=== PATIENT | male | born 1970 | race Caucasian/White ===

== ENCOUNTER 2025-08-23 11:17 | Inpatient (IN) | payer SELFPAY ==
[2025-08-23 11:45] LABS: #Basophils 0.08 10x3/uL (0.0-0.2); #Eosinophils Less than 0.03 10x3/uL (0.0-0.7); #Monocytes 0.52 10x3/uL (0.11-0.59); #Neutrophils 19.70 10x3/uL (1.40-6.50); %Basophils 0.4 % (0.0-1.0); %Eosinophils 0.1 % (0.0-10.0); %Lymphocytes 6.4 % (21.0-51.0); %Monocytes 2.4 % (0.0-10.0); %Neutrophils 90.2 % (42.0-75.0); Hematocrit 40.8 % (42.0-52.0); Hemoglobin 13.7 g/dL (14.0-18.0); Mean Corpuscular Hemoglobin 28.8 pg (27.0-31.0); Mean Corpuscular Volume 85.7 fL (78.0-98.0); Platelet Count 406 10x3/uL (130-400); Red Blood Cell (RBC) Count 4.76 mill/uL (4.70-6.10); White Blood Cell (WBC) Count 21.81 10x3/uL (4.8-10.8)
[2025-08-23] MEDS ORDERED: CALCIUM GLUC 1 GM/NS 50 ML IV Bag ONE (12:09)
[2025-08-23] MEDS ORDERED: hydrALAZINE 20 MG/ML VIAL ONE (12:09)
[2025-08-23] MEDS ORDERED: Ondansetron PF 4 MG/2 ML Vial ONE (12:09)
[2025-08-23 12:18] LABS: ALT (SGPT) 9 U/L (Less than 45); AST (SGOT) 14 U/L (11-34); Albumin 4.5 g/dL (3.1-4.5); Alkaline Phosphatase 92 U/L (40-110); Anion Gap 26 mmol/L (10-20); BUN (Urea Nitrogen) 51 mg/dL (8.4-25.7); Bilirubin, Total 0.4 mg/dL (0.3-1.2); Calc. Creatinine Clearance 0 mL/min (70-130); Calcium 9.5 mg/dL (7.8-10.44); Carbon Dioxide 13 mmol/L (22-29); Chloride 100 mmol/L (98-107); Globulin 3.6 g/dL (2.4-3.5); Glucose 299 mg/dL (70-105); Magnesium 2.1 mg/dL (1.6-2.6); Potassium 6.5 mmol/L (3.5-5.1); Sodium 132 mmol/L (136-145)
[2025-08-23] MEDS ORDERED: Albuterol 2.5 MG (3 mL) NEB ONE (12:25)
[2025-08-23] MEDS ORDERED: Albuterol 2.5 MG (0.5 mL) NEB ONE (12:25)
[2025-08-23 12:48] LABS: Analyzer IN Cardio ER; Base Excess (BEa) -4.3 mEq/L (-2.0 to +3.0); Calcium, Ionized (arterial) 1.11 mmol/L (1.12-1.30); Hematocrit-ABG 44 % (42.0-52.0); Hemoglobin (Hb) 14.8 g/dL (14.0-18.0); O2 Tension (PaO2), arterial 129.3 mmHg (80.0-100.0); pH, Arterial 7.582 (7.35-7.45)
[2025-08-23] MEDS ORDERED: Dextrose 50% Abboject 50 ML SYRINGE ONE (12:56)
[2025-08-23] MEDS ORDERED: cloNIDine 0.1 MG TAB ONE (13:16)
[2025-08-23 14:02] LABS: HBSAB Concentration Less than 8.00 mIU/mL; Hep B Core Total Ab NONREACTIVE (NonReactive); Hep B Core Total Index 0.05 S/CO (0-0.79); Hep B Surf Ag NONREACTIVE S/CO (NonReactive); Hep C IgG Ab NONREACTIVE S/CO (NonReactive); Hep C Index 0.10 S/CO (0-0.79)
[2025-08-23] MEDS ORDERED: Melatonin 3 MG TAB PO PRN (14:03)
[2025-08-23] MEDS ORDERED: Dextrose 50% Abboject 50 ML SYRINGE SLOW IVP PRN (14:03)
[2025-08-23] MEDS ORDERED: Glucagon 1 MG/ML KIT IM PRN (14:03)
[2025-08-23] MEDS ORDERED: Senokot S 8.6-50 MG TAB PO PRN (14:03)
[2025-08-23 17:04] VITALS: BMI 26.4
[2025-08-23] MEDS: Heparin 5,000 UNITS/ML VIAL SC SCH (18:42)
[2025-08-23] MEDS: Activase 2 MG VIAL CATH SCH (19:58)
[2025-08-23] MEDS: cloNIDine 0.1 MG TAB PO SCH (20:26)
[2025-08-23] MEDS: Acetaminophen 325 MG TAB PO PRN (20:26)
[2025-08-24] MEDS: Ondansetron PF 4 MG/2 ML Vial IVP PRN (02:45)
[2025-08-24 04:51] LABS: #Basophils Less than 0.03 10x3/uL (0.0-0.2); #Eosinophils Less than 0.03 10x3/uL (0.0-0.7); #Monocytes 1.11 10x3/uL (0.11-0.59); #Neutrophils 17.12 10x3/uL (1.40-6.50); %Basophils 0.1 % (0.0-1.0); %Eosinophils 0.0 % (0.0-10.0); %Lymphocytes 6.8 % (21.0-51.0); %Monocytes 5.6 % (0.0-10.0); %Neutrophils 87.1 % (42.0-75.0); Hematocrit 38.5 % (42.0-52.0); Hemoglobin 12.6 g/dL (14.0-18.0); Mean Corpuscular Hemoglobin 29.1 pg (27.0-31.0); Mean Corpuscular Volume 88.9 fL (78.0-98.0); Platelet Count 416 10x3/uL (130-400); Red Blood Cell (RBC) Count 4.33 mill/uL (4.70-6.10); White Blood Cell (WBC) Count 19.67 10x3/uL (4.8-10.8)
[2025-08-24 05:09] LABS: ALT (SGPT) 7 U/L (Less than 45); AST (SGOT) 16 U/L (11-34); Albumin 3.9 g/dL (3.1-4.5); Alkaline Phosphatase 79 U/L (40-110); Anion Gap 34 mmol/L (10-20); BUN (Urea Nitrogen) 55 mg/dL (8.4-25.7); Bilirubin, Total 0.4 mg/dL (0.3-1.2); Calc. Creatinine Clearance 16 mL/min (70-130); Calcium 9.0 mg/dL (7.8-10.44); Carbon Dioxide Less than 8 mmol/L (22-29); Chloride 93 mmol/L (98-107); Globulin 3.3 g/dL (2.4-3.5); Glucose 572 mg/dL (70-105); Potassium 5.2 mmol/L (3.5-5.1); Sodium 129 mmol/L (136-145)
[2025-08-24 05:47] LABS: Base Excess -13.1 mEq/L (-2.0 to +3.0); Calcium, Ionized (venous) 1.06 mmol/L (1.16-1.32); Chloride (VBG) 93 mmol/L (98-106); Hematocrit-VBG 39 % (42.0-52.0); Hemoglobin (Hb) 13.2 g/dL (13.1-17.2); Potassium (VBG) 5.59 mmol/L (3.70-5.30); Sodium 133 mmol/L (133-146)
[2025-08-24] MEDS ORDERED: Dextrose 50% Abboject 50 ML SYRINGE SLOW IVP PRN (05:51)
[2025-08-24] MEDS ORDERED: D5 1/2 NS w/20 mEq KCL 1,000 ML IV PRN (05:51)
[2025-08-24] MEDS ORDERED: NS 0.9% w/ 20 MEQ KCL 1,000 ML IV PRN ×3 (05:51→09:36)
[2025-08-24 07:28] LABS: Anion Gap 29 mmol/L (10-20); BUN (Urea Nitrogen) 57 mg/dL (8.4-25.7); Calc. Creatinine Clearance 15 mL/min (70-130); Calcium 8.7 mg/dL (7.8-10.44); Carbon Dioxide 12 mmol/L (22-29); Chloride 94 mmol/L (98-107); Glucose 450 mg/dL (70-105); Potassium 4.7 mmol/L (3.5-5.1); Sodium 130 mmol/L (136-145)
[2025-08-24] MEDS ORDERED: Heparin 10,000 UNITS/ 10 ML VIAL CATH PRN (08:45)
[2025-08-24] MEDS: INSULIN REGULAR IN 0.9 % NACL 100 ML IVPB SCH (08:52)
[2025-08-24] MEDS ORDERED: Electrolyte Replacement Protocol 1 EACH IVPB ONE (09:36)
[2025-08-24] MEDS: Aspirin 81 mg Enteric Coated Tablet PO SCH (09:38)
[2025-08-24] MEDS: Carvedilol 25 MG TAB PO SCH (09:39)
[2025-08-24] MEDS ORDERED: INSULIN REGULAR IN 0.9 % NACL 100 ML IVPB SCH (09:45)
[2025-08-24 09:49] LABS: CO2 Tension 15.4 mmHg (35.0-45.0)
[2025-08-24 09:50] LABS: Actual Bicarbonate (HCO3a) 14.2 mEq/L (22-28); Potassium - ABG Lab 6.42 mmol/L (3.70-5.30)
[2025-08-24] MEDS ORDERED: Potassium Chloride 20 MEQ in Premix 1 BAG IVPB PRN (11:00)
[2025-08-24] MEDS ORDERED: PHOS-NAK 1 PKT PACK PO PRN (11:00)
[2025-08-24] MEDS ORDERED: Magnesium 2 GM/50 ML(in water) 2 GM in Premix 1 BAG IVPB PRN (11:00)
[2025-08-24] MEDS: NS 0.9% w/ 20 MEQ KCL 1,000 ML IV PRN (11:01)
[2025-08-24] MEDS: Losartan 25 MG TAB PO SCH (11:02)
[2025-08-24] MEDS: PARoxetine 20 MG TAB PO SCH (11:02)
[2025-08-24] MEDS: Electrolyte Replacement Protocol 1 EACH IVPB ONE (11:03)
[2025-08-24] MEDS: Dextrose 50% Abboject 50 ML SYRINGE SLOW IVP PRN (11:59)
[2025-08-24] MEDS: D5 1/2 NS w/20 mEq KCL 1,000 ML IV PRN (15:06)
[2025-08-24 16:53] LABS: Anion Gap 18 mmol/L (10-20); BUN (Urea Nitrogen) 32 mg/dL (8.4-25.7); Calc. Creatinine Clearance 23 mL/min (70-130); Calcium 8.4 mg/dL (7.8-10.44); Carbon Dioxide 25 mmol/L (22-29); Chloride 97 mmol/L (98-107); Glucose 208 mg/dL (70-105); Potassium 3.7 mmol/L (3.5-5.1); Sodium 136 mmol/L (136-145)
[2025-08-24] MEDS: Insulin Glargine 30 UNITS/0.3 ML VIAL SC SCH (18:02)
[2025-08-24 22:16] LABS: Anion Gap 18 mmol/L (10-20); BUN (Urea Nitrogen) 31 mg/dL (8.4-25.7); Calc. Creatinine Clearance 19 mL/min (70-130); Calcium 8.1 mg/dL (7.8-10.44); Carbon Dioxide 23 mmol/L (22-29); Chloride 97 mmol/L (98-107); Glucose 277 mg/dL (70-105); Potassium 3.7 mmol/L (3.5-5.1); Sodium 134 mmol/L (136-145)
[2025-08-25 01:19] LABS: Anion Gap 17 mmol/L (10-20); BUN (Urea Nitrogen) 33 mg/dL (8.4-25.7); Calc. Creatinine Clearance 20 mL/min (70-130); Calcium 8.3 mg/dL (7.8-10.44); Carbon Dioxide 23 mmol/L (22-29); Chloride 100 mmol/L (98-107); Glucose 138 mg/dL (70-105); Potassium 3.7 mmol/L (3.5-5.1); Sodium 136 mmol/L (136-145)
[2025-08-25 05:36] LABS: #Basophils 0.04 10x3/uL (0.0-0.2); #Eosinophils 0.05 10x3/uL (0.0-0.7); #Monocytes 1.09 10x3/uL (0.11-0.59); #Neutrophils 6.81 10x3/uL (1.40-6.50); %Basophils 0.4 % (0.0-1.0); %Eosinophils 0.5 % (0.0-10.0); %Lymphocytes 27.6 % (21.0-51.0); %Monocytes 9.8 % (0.0-10.0); %Neutrophils 61.4 % (42.0-75.0); Hematocrit 35.0 % (42.0-52.0); Hemoglobin 11.4 g/dL (14.0-18.0); Mean Corpuscular Hemoglobin 29.0 pg (27.0-31.0); Mean Corpuscular Volume 89.1 fL (78.0-98.0); Platelet Count 277 10x3/uL (130-400); Red Blood Cell (RBC) Count 3.93 mill/uL (4.70-6.10); White Blood Cell (WBC) Count 11.08 10x3/uL (4.8-10.8)
[2025-08-25 05:49] LABS: Anion Gap 15 mmol/L (10-20); BUN (Urea Nitrogen) 31 mg/dL (8.4-25.7); Calc. Creatinine Clearance 17 mL/min (70-130); Calcium 8.4 mg/dL (7.8-10.44); Carbon Dioxide 25 mmol/L (22-29); Chloride 101 mmol/L (98-107); Glucose 157 mg/dL (70-105); Potassium 4.2 mmol/L (3.5-5.1); Sodium 137 mmol/L (136-145)
[2025-08-25] MEDS: Pantoprazole 40 MG DR.TAB PO SCH (08:28)
[2025-08-25] MEDS: Insulin Glargine 30 UNITS/0.3 ML VIAL SC SCH (08:28)
[2025-08-25] MEDS: Lansoprazole 30 MG/10 ML UDCUP PER TUBE SCH (08:29)
[2025-08-25 11:01] LABS: Actual Bicarbonate (HCO3v) 11.4 mEq/L (22-28)
[2025-08-25 12:53] VITALS: BMI 26.4
[2025-08-25] MEDS: Heparin 10,000 UNITS/ 10 ML VIAL FS PRN (13:00)
[2025-08-25] MEDS: Heparin 10,000 UNITS/ 10 ML VIAL CATH PRN (17:40)
[2025-08-26 05:34] LABS: Anion Gap 18 mmol/L (10-20); BUN (Urea Nitrogen) 22 mg/dL (8.4-25.7); Calc. Creatinine Clearance 24 mL/min (70-130); Calcium 8.1 mg/dL (7.8-10.44); Carbon Dioxide 21 mmol/L (22-29); Chloride 98 mmol/L (98-107); Glucose 283 mg/dL (70-105); Potassium 4.3 mmol/L (3.5-5.1); Sodium 133 mmol/L (136-145)
[2025-08-26 11:44] VITALS: TEMP 98
[2025-08-26 14:49] VITALS: BP 142/75
== END 2025-08-26 14:35 | disposition home or self-care (01) | DRG 640 ==
LOC: ERS 11:17 → OBS 15:08 → IMCU/EMU 08-24 08:26 → T4-B 08-24 22:54
PROVIDERS: ADMIT Internal Medicine; ATTEND Hospitalist
PROC: 4A033R1 Measurement of Arterial Saturation, Peripheral, Percutaneous Approach (ICD-10-PCS; 2025-08-23)
PROC: 5A1D70Z Performance of Urinary Filtration, Intermittent, Less than 6 Hours Per Day (ICD-10-PCS; principal; 2025-08-24)
DX: E87.5 Hyperkalemia (principal); E10.10 Type 1 diabetes mellitus with ketoacidosis without coma; N18.6 End stage renal disease; I12.0 Hypertensive chronic kidney disease with stage 5 chronic kidney disease or end stage renal disease; I16.0 Hypertensive urgency; E87.1 Hypo-osmolality and hyponatremia; Z99.2 Dependence on renal dialysis; Z98.890 Other specified postprocedural states; Z95.1 Presence of aortocoronary bypass graft; F41.9 Anxiety disorder, unspecified; F32.A Depression, unspecified; I25.10 Atherosclerotic heart disease of native coronary artery without angina pectoris; Z87.891 Personal history of nicotine dependence; Z79.899 Other long term (current) drug therapy; E83.39 Other disorders of phosphorus metabolism; Z88.0 Allergy status to penicillin; K31.84 Gastroparesis; E10.43 Type 1 diabetes mellitus with diabetic autonomic (poly)neuropathy; Z98.1 Arthrodesis status; Z91.148 Patient's other noncompliance with medication regimen for other reason; Z95.5 Presence of coronary angioplasty implant and graft; E78.5 Hyperlipidemia, unspecified; M19.90 Unspecified osteoarthritis, unspecified site; E10.22 Type 1 diabetes mellitus with diabetic chronic kidney disease; F10.129 Alcohol abuse with intoxication, unspecified
CPT/HCPCS: 36415; 36416; 71045; 80048; 80053; 82010; 82805; 83605; 83735; 83880; 84484; 85025; 86704; 86706; 86803; 87340; 90935; 93005; 96374; 96375; G0257; J0360; J0613; J1644; J1815; J2405; J2550; J2997; J3480; J7611; J7999